=== PATIENT | male | born 1990 | race Caucasian/White ===

== ENCOUNTER 2018-07-23 14:35 | Emergency (ER) | payer SELFPAY ==
[2018-07-23] MEDS ORDERED: Dexamethasone 4 mg/ml Vial ONE (14:52)
[2018-07-23] MEDS ORDERED: AMOXicillin 250 MG CAP ONE (14:52)
== END 2018-07-23 15:04 | disposition home or self-care (01) ==
LOC: BURERS 14:35
DX: J20.9 Acute bronchitis, unspecified (principal)
CPT/HCPCS: 99283; J1100